=== PATIENT | male | born 1945 | race Caucasian/White ===

== ENCOUNTER 2017-09-09 08:43 | Outpatient (CLI) | payer MEDICARE ==
[2017-09-09] VITALS (8 sets, daily range): BP systolic 108–146; BP diastolic 68–88; PULSE 83–104
[~2017-09-09] VITALS: Ht 175.3 cm; Wt 64.5 kg
[~2017-09-09 08:43] MED LIST: LAMICTAL200 MG PO; TOPROL XL 25MG25 MG PO; WELLBUTRIN 100100 MG PO; ZESTORETIC 12.51 TA1 PO
[2017-09-09 12:55] LABS: CEREBROSPINAL TUBE #4; CSF APPEARANCE CLEAR; CSF COLOR COLORLESS
[2017-09-09 12:59] LABS: CSF POLYMORPHONUCLEAR 5 % (0-6)
== END 2017-09-09 12:50 | disposition home or self-care (01) ==
LOC: COL.RAD 08:43
PROVIDERS: Psychiatry & Neurology Neurology
DX: G60.3 Idiopathic progressive neuropathy (principal); G93.89 Other specified disorders of brain; J32.2 Chronic ethmoidal sinusitis; J32.3 Chronic sphenoidal sinusitis

== ENCOUNTER 2017-11-06 08:30 | Outpatient (RCR) | payer MEDICARE, OTHER ==
[2017-11-02] VITALS (10 sets, daily range): BP systolic 99–117; BP diastolic 46–69; PULSE 69–79; TEMP 98.5–99.3
[2017-11-02 10:41] LABS: BASO % 0.3 % (0.0-2.0); EOS # 0.1 (0.0-0.7); EOS % 0.7 % (0-4.0); GRAN # 6.6 (1.4-6.5); GRAN % 68.8 % (42.2-75.2); HEMATOCRIT 41.4 % (42.0-52.0); HEMOGLOBIN 13.3 g/dl (13.5-18.0); LYMPH # 2.2 (1.2-3.4); LYMPH % 22.8 % (20.0-51.0); MEAN CELL VOLUME 86 fl (80.0-100.0); MEAN CORPUSCULAR HEMOGLOBIN 28 pg (27.0-31.0); MEAN CORPUSCULAR HGB CONC 32 g/dl (33.0-37.0); MEAN PLATELET VOLUME 9.4 fl (7.4-10.4); MONO # 0.7 (0.1-0.6); MONO % 7.1 % (1.7-9.3); PLATELET COUNT 313 K/mm3 (130-400); RED BLOOD COUNT 4.82 M/mm3 (4.20-5.60); WHITE BLOOD COUNT 9.6 K/mm3 (4.8-10.8)
[2017-11-02 10:48] LABS: ADJUSTED CALCIUM 9.7 mg/dL (8.4-10.2); ALBUMIN 3.6 gm/dL (3.5-5.0); BILIRUBIN,TOTAL 0.4 mg/dL (0.0-1.0); CALCIUM 9.4 mg/dL (8.4-10.2); CREATININE, serum 0.75 mg/dL (0.66-1.25); POTASSIUM 3.5 mmol/L (3.4-5.0); TOTAL PROTEIN 6.3 gm/dL (6.4-8.2)
[2017-11-03] VITALS (7 sets, daily range): BP systolic 91–105; BP diastolic 37–56; PULSE 62–71; TEMP 97.6–98.2
[2017-11-04] VITALS (10 sets, daily range): BP systolic 96–116; BP diastolic 46–66; PULSE 64–72; TEMP 97.2–98.8
[2017-11-05] VITALS (8 sets, daily range): BP systolic 106–125; BP diastolic 45–57; PULSE 59–75; TEMP 97.4–98.5
[~2017-11-06] VITALS: Ht 175.3 cm; Wt 60.0 kg
[2017-11-06] VITALS (9 sets, daily range): BP systolic 102–129; BP diastolic 58–66; PULSE 63–69; TEMP 97.3–98.6
== END 2017-11-06 13:07 | disposition home or self-care (01) ==
LOC: EUO 08:30
PROVIDERS: Psychiatry & Neurology Neurology
DX: G61.81 Chronic inflammatory demyelinating polyneuritis (principal)
CPT/HCPCS: J1200; J1459; J1569; J2930

== ENCOUNTER → 2017-12-25 | Outpatient (CLI) | payer MEDICARE ==
[~2017-12-25] MED LIST changes: +GAMMAPLEX 20 G200 ML IV; +VITAMIN B11000 MCG/M IM
== END ==
LOC: COL.RAD 07:46
DX: K22.8 Other specified diseases of esophagus (principal)

== ENCOUNTER → 2018-01-12 | Outpatient (CLI) | payer MEDICARE | LOC: COL.LAB 15:58 | DX: Z01.89 Encounter for other specified special examinations (principal) ==

== ENCOUNTER 2018-03-04 11:00 | Outpatient (RCR) | payer MEDICARE, MEDICAID ==
[2017-12-08] VITALS (10 sets, daily range): BP systolic 107–139; BP diastolic 59–68; PULSE 76–88; TEMP 98
[2017-12-09] VITALS (9 sets, daily range): BP systolic 115–137; BP diastolic 65–80; PULSE 79–90; TEMP 97.6–98.5
[2017-12-29] VITALS (10 sets, daily range): BP systolic 123–140; BP diastolic 57–74; PULSE 73–87; TEMP 98–99
[2017-12-30] VITALS (13 sets, daily range): BP systolic 109–130; BP diastolic 58–64; PULSE 78–92; TEMP 98.1–98.5
[2018-01-20] VITALS (10 sets, daily range): BP systolic 114–135; BP diastolic 46–65; PULSE 78–88; TEMP 97.5–98.5
[2018-01-21 11:39] VITALS: BP 118/68; PULSE 79; TEMP 97.9
[2018-02-08] VITALS (10 sets, daily range): BP systolic 116–144; BP diastolic 54–73; PULSE 75–90; TEMP 98.5–99.4
[2018-02-09] VITALS (9 sets, daily range): BP systolic 110–143; BP diastolic 43–64; PULSE 72–78; TEMP 97.7–98.7
[2018-03-03] VITALS (9 sets, daily range): BP systolic 107–142; BP diastolic 52–94; PULSE 72–83; TEMP 97.5–99.1
[2018-03-04] VITALS (9 sets, daily range): BP systolic 103–118; BP diastolic 48–65; PULSE 69–83; TEMP 97.4–98.8
[~2018-03-04] VITALS: Ht 175.3 cm; Wt 62.4 kg
[~2018-03-04 11:00] MED LIST changes: +PENTASA500 MG PO
== END 2018-03-04 16:01 | disposition home or self-care (01) ==
LOC: EUO 11:00
DX: G61.81 Chronic inflammatory demyelinating polyneuritis (principal)
CPT/HCPCS: J1569; J2930

== ENCOUNTER 2018-03-25 11:30 | Outpatient (RCR) | payer MEDICARE, MEDICAID ==
[2018-03-24] VITALS (9 sets, daily range): BP systolic 112–132; BP diastolic 51–69; PULSE 81–93; TEMP 97.5–99
[~2018-03-25 11:30] MED LIST changes: +GAMMAGARD LIQ30 IV; -GAMMAPLEX 20 G200 ML IV
[2018-03-25 12:00] VITALS: BP 118/65; BP 120/64; PULSE 77; PULSE 78; TEMP 98.5
[2018-03-25 12:15] VITALS: BP 122/53; PULSE 72; TEMP 98.5
[2018-03-25 12:45] VITALS: BP 113/55; PULSE 80; TEMP 98.5
[2018-03-25 13:15] VITALS: BP 123/55; PULSE 76; TEMP 98.5
[2018-03-25 14:28] VITALS: BP 135/55; PULSE 72; TEMP 98.5
== END 2018-06-22 | disposition home or self-care (01) ==
LOC: EUO
DX: G61.81 Chronic inflammatory demyelinating polyneuritis (principal)
CPT/HCPCS: J1569; J2930

== ENCOUNTER 2018-03-27 21:33 | Emergency (ER) | payer MEDICARE, MEDICAID ==
[~2018-03-27] VITALS: Ht 175.3 cm; Wt 72.7 kg
[~2018-03-27 21:33] MED LIST changes: -GAMMAGARD LIQ30 IV; +GAMMAPLEX 20 G200 ML IV
[2018-03-27 21:37] VITALS: TEMP 98
[2018-03-27 22:16] LABS: BASO % 0.3 % (0.0-2.0); EOS # 0.1 (0.0-0.7); EOS % 0.5 % (0-4.0); GRAN # 8.1 (1.4-6.5); GRAN % 79.7 % (42.2-75.2); LYMPH # 1.3 (1.2-3.4); LYMPH % 13.2 % (20.0-51.0); MEAN CELL VOLUME 86 fl (80.0-100.0); MEAN CORPUSCULAR HGB CONC 32 g/dl (33.0-37.0); MONO # 0.6 (0.1-0.6); MONO % 5.9 % (1.7-9.3); PLATELET COUNT 272 K/mm3 (130-400); RED BLOOD COUNT 4.19 M/mm3 (4.20-5.60); REDCELL DISTRIBUTION WIDTH-CV 14.7 % (11.5-14.5)
[2018-03-27 22:17] LABS: HEMATOCRIT 36.1 % (42.0-52.0); HEMOGLOBIN 11.7 g/dl (13.5-18.0); MEAN CORPUSCULAR HEMOGLOBIN 28 pg (27.0-31.0)
[2018-03-27 22:26] LABS: ALANINE AMINOTRANSFERASE 28 U/L (21-72); ALBUMIN 3.4 gm/dL (3.5-5.0); ALKALINE PHOSPHATASE 62 U/L (50-136); ANION GAP 12 mmol/L (7-16); AST,SGOT 18 U/L (15-37); BILIRUBIN,TOTAL 0.6 mg/dL (0.0-1.0); BLOOD UREA NITROGEN 15 mg/dL (9-20); CALCIUM 8.6 mg/dL (8.4-10.2); CARBON DIOXIDE 30 mmol/L (22-30); CHLORIDE 100 mmol/L (98-107); CREATINE KINASE 40 U/L (55-170); CREATININE, serum 0.69 mg/dL (0.66-1.25); GLUCOSE 109 mg/dL (74-106); POTASSIUM 3.6 mmol/L (3.4-5.0); SODIUM 142 mmol/L (137-145); TOTAL PROTEIN 7.3 gm/dL (6.4-8.2)
[2018-03-27 22:37] LABS: TROPONIN-I < 0.012 ng/mL (0.000-0.034)
[2018-03-27 23:53] LABS: COLLECTION METHOD CLEAN CATCH
[2018-03-28] LABS: MUCOUS Present /lpf; PH 6 (5-8); SQUAMOUS EPITHELIAL 0-2 /hpf; URINE APPEARANCE Clear; URINE BACTERIA None Seen /hpf; URINE BILIRUBIN Negative (NEGATIVE); URINE BLOOD Negative (NEGATIVE); URINE COLOR Yellow; URINE GLUCOSE Negative (NEGATIVE); URINE KETONE Negative (NEGATIVE); URINE LEUKOCYTE ESTERASE Negative (NEGATIVE); URINE NITRATE Negative (NEGATIVE); URINE PROTEIN(semi-quant) 1+ (NEGATIVE); URINE UROBILINOGEN >=4.0 mg/dL (NEGATIVE)
[2018-03-28 01:10] VITALS: BP 123/64; PULSE 79
== END 2018-03-28 01:25 | disposition home or self-care (01) ==
LOC: COL.ER 21:33
PROVIDERS: Emergency Medicine
DX: R42 Dizziness and giddiness (principal); G61.81 Chronic inflammatory demyelinating polyneuritis; I25.10 Atherosclerotic heart disease of native coronary artery without angina pectoris; F31.9 Bipolar disorder, unspecified; K50.90 Crohn's disease, unspecified, without complications; W01.0XXA Fall on same level from slipping, tripping and stumbling without subsequent striking against object, initial encounter; Y92.009 Unspecified place in unspecified non-institutional (private) residence as the place of occurrence of the external cause
CPT/HCPCS: J7030

== ENCOUNTER → 2018-05-03 | Outpatient (REF) ==
[~2018-05-03] MED LIST changes: +GAMMAGARD LIQ30 IV; -GAMMAPLEX 20 G200 ML IV
[2018-05-03 16:30] LABS: COLLECTION METHOD CATHETER
[2018-05-03 16:52] LABS: MUCOUS Present /lpf; PH 5 (5-8); SQUAMOUS EPITHELIAL 0-2 /hpf; URINE APPEARANCE Hazy; URINE BACTERIA Rare /hpf; URINE BILIRUBIN Negative (NEGATIVE); URINE BLOOD 2+ (NEGATIVE); URINE COLOR Yellow; URINE GLUCOSE Negative (NEGATIVE); URINE KETONE Trace (NEGATIVE); URINE LEUKOCYTE ESTERASE Negative (NEGATIVE); URINE NITRATE Negative (NEGATIVE); URINE PROTEIN(semi-quant) Negative (NEGATIVE); URINE RBC >50 /hpf
== END ==
LOC: ZCOL.LAB 16:29
PROVIDERS: Internal Medicine
DX: R41.82 Altered mental status, unspecified (principal)

== ENCOUNTER → 2018-05-03 | Outpatient (REF) ==
[2018-05-03 15:09] LABS: BASO % 0.1 % (0.0-2.0); GRAN # 13.6 (1.4-6.5); GRAN % 92.6 % (42.2-75.2); HEMATOCRIT 42.3 % (42.0-52.0); HEMOGLOBIN 13.4 g/dl (13.5-18.0); LYMPH # 0.8 (1.2-3.4); LYMPH % 5.3 % (20.0-51.0); MEAN CELL VOLUME 91 fl (80.0-100.0); MEAN CORPUSCULAR HEMOGLOBIN 29 pg (27.0-31.0); MEAN CORPUSCULAR HGB CONC 32 g/dl (33.0-37.0); MEAN PLATELET VOLUME 9.3 fl (7.4-10.4); MONO # 0.2 (0.1-0.6); MONO % 1.5 % (1.7-9.3); PLATELET COUNT 275 K/mm3 (130-400); RED BLOOD COUNT 4.67 M/mm3 (4.20-5.60); REDCELL DISTRIBUTION WIDTH-CV 16.4 % (11.5-14.5)
[2018-05-03 15:19] LABS: ALBUMIN 3.7 gm/dL (3.5-5.0); BILIRUBIN,TOTAL 0.4 mg/dL (0.0-1.0); CALCIUM 9.9 mg/dL (8.4-10.2); CREATININE, serum 0.86 mg/dL (0.66-1.25); POTASSIUM 4.7 mmol/L (3.4-5.0); TOTAL PROTEIN 6.1 gm/dL (6.4-8.2)
== END ==
LOC: ZCOL.LAB 15:05
PROVIDERS: Internal Medicine
DX: E43 Unspecified severe protein-calorie malnutrition (principal); R41.82 Altered mental status, unspecified